=== PATIENT | female | born 1950 | race Caucasian/White ===

== ENCOUNTER 2016-04-30 13:37 | Emergency (ER) | payer MEDICARE, OTHER ==
[2016-04-30 14:18] VITALS: BP 139/76
--- NOTE | 2016-04-30 15:06 | UC ---
Throat Pain/Nasal Hoang HPI - HPI Summary HPI Summary: 14 DAYS OF SINUS CONGESTION PRESSURE. BILATERAL EAR PAIN WORSENIONG OVER LAST SEVEN DAYS. NO FEVER. - History of Current Complaint Chief Complaint: UCRespiratory Stated Complaint: SINUS ISSUE Time Seen by Provider: 04/30/16 14:19 Hx Obtained From: Patient Onset/Duration: Gradual Onset, Lasting Weeks, Worse Since - 7 DAYS Severity: Moderate Pain Intensity: 3 Pain Scale Used: 0-10 Numeric Associated Signs & Symptoms: Positive: Sinus Discomfort, Nasal Discharge - Epiglottits Risk Factors Epiglottis Risk Factors: Negative - Allergies/Home Medications Allergies/Adverse Reactions: Allergies Allergy/AdvReac Type Severity Reaction Status Date / Time No Known Allergies Allergy Verified 04/30/16 14:11 Home Medications: Home Medications LORazepam TAB(*) [Ativan TAB(*)] 1 tab PRN 04/30/16 [History] Sertraline* [Zoloft*] 1 tab DAILY 04/30/16 [History Confirmed 04/30/16] Zolpidem TAB* [Ambien*] 1 tab PRN 04/30/16 [History] metFORMIN* [Glucophage*] 1 tab BID 04/30/16 [History Confirmed 04/30/16] PMH/Surg Hx/FS Hx/Imm Hx Previously Healthy: Yes Endocrine History Of: Reports: Diabetes - pre - Surgical History Surgical History: Yes Surgery Procedure, Year, and Place: 3xC-section; Tubal ligation; Carpal tunnel R /L; R/L Knee arthroscopic surgery; Gastric bypass; Mid-section liposuction - Family History Known Family History: Negative: Respiratory Disease - Social History Occupation: Employed Full-time Lives: With Family Alcohol Use: None Substance Use Type: None Smoking Status (MU): Never Smoked Tobacco - Immunization History Most Recent Influenza Vaccination: Fall 2015 Review of Systems Constitutional: Negative Skin: Negative Eyes: Negative ENT: Ear Ache, Nasal Discharge Respiratory: Cough Cardiovascular: Negative Gastrointestinal: Negative Genitourinary: Negative Motor: Negative Neurovascular: Negative Musculoskeletal: Negative Neurological: Negative Psychological: Negative All Other Systems Reviewed And Are Negative: Yes Physical Exam Triage Information Reviewed: Yes Appearance: No Pain Distress, Well-Nourished, Ill-Appearing - MILD Vital Signs: Initial Vital Signs Temp 97.5 F 04/30/16 14:13 Pulse 78 04/30/16 14:13 Resp 18 04/30/16 14:13 BP 139/76 04/30/16 14:13 Pulse Ox 99 04/30/16 14:13 Vital Signs Reviewed: Yes Eye Exam: Normal ENT: Positive: Pharynx normal, Nasal congestion, TM bulging, TM dull Dental Exam: Normal Neck exam: Normal Neck: Positive: Supple, Nontender, No Lymphadenopathy. Negative: Tenderness @ Respiratory Exam: Normal Respiratory: Positive: Chest non-tender, Lungs clear, Normal breath sounds, No respiratory distress, No accessory muscle use Cardiovascular Exam: Normal Cardiovascular: Positive: RRR, No Murmur Abdominal Exam: Normal Abdomen Description: Positive: Nontender, No Organomegaly Musculoskeletal Exam: Normal Musculoskeletal: Positive: Strength Intact, ROM Intact, No Edema Neurological Exam: Normal Psychological Exam: Normal Psychological: Positive: Normal Response To Family Skin Exam: Normal Throat Pain/Nasal Course/Dx - Differential Dx/Diagnosis Differential Diagnosis/HQI/PQRI: Pharyngitis, Sinusitis, Tonsillitis, URI Provider Diagnoses: SINUSITIS Discharge - Discharge Plan Condition: Stable Disposition: HOME Prescriptions: Amoxicillin/Clavulanate TAB* [Augmentin TAB 875*] 875 mg PO BID #20 tab Patient Education Materials: Sinusitis (ED) Referrals: Reji Hassan MD [Primary Care Provider] -
== END 2016-04-30 14:56 | disposition home or self-care (01) ==
LOC: UCEAST 13:37
DX: J32.9 Chronic sinusitis, unspecified (principal); R73.03 Prediabetes; Z98.84 Bariatric surgery status
CPT/HCPCS: 99212; G0463